=== PATIENT | male | born 1970 | race Caucasian/White ===

== ENCOUNTER 2018-03-29 18:00 | Emergency (ER) | payer SELFPAY ==
[~2018-03-29] VITALS: Ht 200.7 cm; Wt 92.6 kg
--- NOTE | 2018-03-29 18:10 | NUR ---
PT SPLIT UP WITH , GROSSLY INTOXICATED ON ARRIVAL, [facility] ATTEMPTED TO TAKE TO [facility]. PT VERBALIZED "ILL WALK INTO TRAFFIC IF YOU LEAVE ME THERE". [employer] BROUGHT TO [facility] ED AND PLACED ON LEGAL HOLD. PT PLACED IN SAFE ROOM, ONLY IN GOWN. PT BELONGINS PLACEDIN 1 BAG IN ED LOCKER. PT PROVIDED UA SAMPLE. PT DENIES SI AT THIS TIME. DOES APPERA INTOXICATED. PT BERBALIZED "LETS GO HAVE A DRINK BRO, I WANT TO GET FUCKED UP BRO". PT VSS ON ARRIVAL. SITTER REQUESTED FOR SAFETY AT THIS TIME. AWIATING FURTHER ORDERS.
[2018-03-29 18:34] LABS: AMPHETAMINE SCREEN, URINE Negative (Negative); BARBITURATE SCREEN, URINE Negative (Negative); BENZODIAZEPINE SCREEN, URINE Negative (Negative); CANNABINOID SCREEN, URINE Negative (Negative); COCAINE SCREEN, URINE Negative (Negative); METHADONE SCREEN, URINE Negative (Negative); OPIATE SCREEN, URINE Negative (Negative)
--- NOTE | 2018-03-29 19:01 | NUR ---
Sleeping, remains on continuous pulse ox.
--- NOTE | 2018-03-29 20:00 | NUR ---
pt sleeping in nad at this time sitter at door
[2018-03-29 21:33] VITALS: BP 132/80
--- NOTE | 2018-03-30 00:37 | NUR ---
pt awake breath etoh 0.17 md aware md spoke to pt and pt states he is ready to discharge, in nad at this time
--- NOTE | 2018-03-30 01:31 | NUR ---
Patient/Caregiver given discharge instructions and they have confirmed that they understand the instructions. Patient ambulatory with steady gait.
== END 2018-03-30 01:32 | disposition home or self-care (01) ==
LOC: ED 21:15
DX: F32.9 Major depressive disorder, single episode, unspecified (principal); F10.120 Alcohol abuse with intoxication, uncomplicated; F17.200 Nicotine dependence, unspecified, uncomplicated; Z72.9 Problem related to lifestyle, unspecified; Z91.14 Patient's other noncompliance with medication regimen; Y90.9 Presence of alcohol in blood, level not specified
CPT/HCPCS: 80307; 99284